=== PATIENT | male | born 1990 | race African-American/Black ===

== ENCOUNTER 2020-01-15 23:52 | Emergency (ER) | payer OTHER ==
[~2020-01-15] VITALS: Ht 170.2 cm; Wt 81.7 kg
[2020-01-16] MEDS ORDERED: NOHOMEMEDICATIONS (00:25)
[2020-01-16 00:45] LABS: HEMATOCRIT 42.5 % (42.0-52.0); HEMOGLOBIN 14.6 gm/dL (14.0-18.0); MCH 28.9 pg (26.0-34.0); MCHC 34.4 g/dL (28.0-37.0); MCV 83.9 fL (80.0-100.0); PLATELET COUNT 121 thou/uL (150-400); RBC 5.06 mil/uL (4.50-6.00); RDW 12.2 % (10.5-14.5); WBC 8.3 thou/uL (4.0-11.0)
[2020-01-16 00:53] LABS: ANION GAP 11 mmol/L (7-16); BUN 6 mg/dL (7-18); CALCIUM 8.8 mg/dL (8.5-10.1); CHLORIDE 99 mmol/L (98-107); CO2 27 mmol/L (21-32); CREATININE 1.5 mg/dL (0.7-1.3); GLUCOSE 161 mg/dL (74-106); POTASSIUM 3.6 mmol/L (3.5-5.1); SODIUM 137 mmol/L (136-145)
[2020-01-16 01:03] LABS: ALBUMIN 3.7 g/dL (3.4-5.0); LIPASE 139 U/L (73-393); SGOT 218 U/L (15-37); SGPT 220 U/L (30-65); TOTAL BILIRUBIN 0.7 mg/dL (0.2-1.0); TOTAL PROTEIN 7.3 g/dL (6.4-8.2); TROPONIN-I <0.06 ng/mL (<0.06)
[2020-01-16 02:00] LABS: ABSOLUTE NEUTROPHILS 1.7 thou/uL (1.4-8.2)
[2020-01-16 02:01] LABS: LARGE PLATELETS FEW; PLATELET ESTIMATE DECREASED
[2020-01-16 02:33] VITALS: BP 110/88
--- NOTE | 2020-01-16 07:45 | EKG ---
[facility] [place] [address] ELECTROCARDIOGRAM REPORT Name: JOE WOLFF Room #: DEP [facility]#: [id number] Admission: 01/15/20 Attend Phys: Discharge: 01/16/20 Date of : [birth year] Report #: [id number] THIS REPORT FOR: cc: NO FAMILY PHYSICIAN or PCP NO FAMILY PHYSICIAN or PCP Raheel Bolivar MD [facility] ~ THIS REPORT FOR: //name// [facility] ED Test Date: 2020-01-16 Test Time: 00:09:43 Pat Name: JOE WOLFF Department: Room: Gender: [employer]: : 1990 Requested By: Chalino Costa Order Number: [id number] MD: Raheel Bolivar Measurements Intervals [place] Rate: 73 P: 71 [place]: 167 QRS: 50 QRSD: 76 T: 17 QT: 366 QTc: 404 Interpretive Statements Sinus rhythm Borderline T wave abnormalities No previous ECG available for comparison Electronically Signed On 01-16-2020 7:45:26 CDT by Raheel Bolivar [email or web address] <ELECTRONICALLY SIGNED> By: Raheel Bolivar MD, FACC 01/16/20 0745 [id number] [id number] Raheel Bolivar MD, FACBertha /EPI
== END 2020-01-16 02:35 | disposition home or self-care (01) ==
LOC: ER 23:52
PROVIDERS: Emergency Medicine
DX: R07.9 Chest pain, unspecified (principal); R00.0 Tachycardia, unspecified; R50.9 Fever, unspecified; R11.0 Nausea; R05 Cough; R19.7 Diarrhea, unspecified; R51 Headache; F17.210 Nicotine dependence, cigarettes, uncomplicated; Z91.010 Allergy to peanuts

== ENCOUNTER 2020-06-02 05:01 | Emergency (ER) | payer OTHER ==
[~2020-06-02] VITALS: Ht 170.2 cm; Wt 81.7 kg
[~2020-06-02 05:01] MED LIST: NOHOMEMEDICATIONS
[2020-06-02 05:49] LABS: URINE BILIRUBIN NEGATIVE (Negative); URINE BLOOD TRACE (Negative); URINE CLARITY CLEAR; URINE COLOR YELLOW; URINE GLUCOSE-RANDOM* NEGATIVE (Negative); URINE KETONES 1+ (Negative); URINE LEUKOCYTES-REFLEX NEGATIVE (Negative); URINE NITRITE-REFLEX NEGATIVE (Negative); URINE PROTEIN (DIPSTICK) 1+ (Negative); URINE SPECIFIC GRAVITY >= 1.030 (1.005-1.035); URINE UROBILINOGEN 0.2 E.U./dl (0.2-1.0)
[2020-06-02 05:50] LABS: ABSOLUTE NEUTROPHILS 9.1 thou/uL (1.4-8.2); BASOPHILS 0.4 % (0.0-2.0); EOSINOPHILS 0.3 % (0.0-3.0); HEMATOCRIT 48.2 % (42.0-52.0); HEMOGLOBIN 15.9 gm/dL (14.0-18.0); LYMPHOCYTES 29.3 % (24.0-44.0); MCH 27.9 pg (26.0-34.0); MCHC 32.9 g/dL (28.0-37.0); MCV 84.7 fL (80.0-100.0); MONOCYTES 4.7 % (1.0-8.0); PLATELET COUNT 269 thou/uL (150-400); POLYS 65.3 % (36.0-66.0); RDW 13.3 % (10.5-14.5); WBC 13.9 thou/uL (4.0-11.0)
[2020-06-02 05:58] LABS: CALCIUM 9.8 mg/dL (8.5-10.1); CREATININE 1.4 mg/dL (0.7-1.3); POTASSIUM 3.5 mmol/L (3.5-5.1)
[2020-06-02 06:04] LABS: ALBUMIN 5.2 g/dL (3.4-5.0); TOTAL BILIRUBIN 0.7 mg/dL (0.2-1.0); TOTAL PROTEIN 8.7 g/dL (6.4-8.2)
[2020-06-02 06:07] LABS: BACTERIA-REFLEX None Seen /HPF (None Seen); CASTS None Seen /LPF (None Seen); CRYSTALS None Seen /LPF (None Seen); MUCUS 0-3 Light strn/LPF (None Seen); SQUAMOUS None Seen /LPF (0-3); URINE RBC 0-2 Rare /HPF (0-2); URINE WBC-REFLEX None Seen /HPF (0-5)
--- NOTE | 2020-06-02 07:51 | EKG ---
[facility] [address] ELECTROCARDIOGRAM REPORT Name: JOE WOLFF Aureliano [id number] Admission: 06/02/20 Attend Phys: Discharge: Date of : [birth year] Report #: [id number] [facility] ED Test Date: 2020-06-02 Test Time: 05:19:53 Pat Name: JOE WOLFF Department: Room: Gender: M Sticker On: Kinza : 1990 Requested By: Rex Reddy Order Number: [id number] MD: Yan Camara Measurements Intervals [place] Rate: 89 P: 82 [place]: 163 QRS: 58 QRSD: 84 T: 35 QT: 364 QTc: 443 Interpretive Statements Sinus rhythm Right atrial enlargement LVH by voltage Baseline wander in lead(s) V2 Compared to ECG 01/16/2020 00:09:43 ST and T wave abnormality is more prominent Electronically Signed On 06-02-2020 7:51:44 GUITAR INSTRU[employer] by Yan Camara [email or web address] <ELECTRONICALLY SIGNED> By: Yan Camara MD, [facility] 06/02/20 0751 [id number] Yan Camara MD, FACC /EPI
[2020-06-02 10:22] VITALS: BP 120/56
== END 2020-06-02 10:24 | disposition home or self-care (01) ==
LOC: ER 05:01
PROVIDERS: Emergency Medicine
DX: R10.9 Unspecified abdominal pain (principal); R11.2 Nausea with vomiting, unspecified; F17.210 Nicotine dependence, cigarettes, uncomplicated; F14.90 Cocaine use, unspecified, uncomplicated; Z91.010 Allergy to peanuts